=== PATIENT | female | born 1950 | race African-American/Black ===

== ENCOUNTER 2017-05-04 14:24 | Inpatient (IN) | payer MEDICARE ==
[2017-05-04] MEDS ORDERED: NITROGLYCERIN 0.4 MG/TAB 25 TAB/BOTTLE ONE (14:38)
[2017-05-04] MEDS ORDERED: NITROGLYCERIN 0.4 MG/TAB 25 TAB/BOTTLE SL PRN (14:39)
--- NOTE | 2017-05-04 14:44 | ER Document Report ---
ED Respiratory Problem - General Chief Complaint: Shortness Of Breath Stated Complaint: SHORTNESS OF BREATH Time Seen by Provider: 05/04/17 14:31 Mode of Arrival: Medic Cannot obtain history due to: Unstable vital signs, Other - Severe shortness of breath - HPI Notes: 66-year-old female history of hypertension. She presents with shortness of breath that has been severe from urgent care. Limited history as she is extremely short of breath, medics report her oxygen saturation was apparently 70 %. She is unable to lay back because of the shortness of breath. Further history could not be obtained as we are having respiratory evaluate the patient and she is unable to speak except in a few words only. - Related Data Allergies/Adverse Reactions: amoxicillin Allergy (Verified 05/04/17 15:09) Home Medications: Current Home Medications No Home Medications 05/04/17 [History] Past Medical History - Social History Smoking Status: Unknown if Ever Smoked Family History: Reviewed & Not Pertinent Physical Exam - Vital signs Vitals: BP 237/124 H 05/04/17 14:29 Interpretation: Hypertensive, Tachypneic - Notes Notes: Physical Exam: GENERAL: VS as per nursing doc. chronically ill-appearing female in severe respiratory distress HEAD: Atraumatic, normocephalic. EYES: Pupils equal round and reactive to light, extraocular movements intact, sclera anicteric, no conjunctival injection or discharge. ENT: Moist mucous membranes. NECK: Supple without lymphadenopathy. + JVD LUNGS: Decreased breath sounds bilaterally with scattered rales and rhonchi HEART: Tachycardic with some irregularity, systolic murmur noted. ABDOMEN: Very protuberant but nontender EXTREMITIES: 3+ pitting edema bilaterally NEUROLOGICAL: Cranial nerves grossly intact. Moves all extremities symmetrically. PSYCH: Very anxious. SKIN: Warm, dry and slightly flaking, no cyanosis. Cap refill < 2 sec. Course - Re-evaluation Re-evalutation: 05/04/17 16:39 Initial ABG was done pretty much as the patient was being put on BiPAP. She seems to be doing much better at this point she has more awake alert and does not seem happy when I discussed admission with her. We will repeat her ABG and reevaluate. 05/04/17 18:21 We were able to talk to the patient when we took off her mask for further evaluation. She is speaking clearly, wide awake. She is still slightly tachypneic but significantly improved. Her blood pressure has improved as well with the nitroglycerin. She did not require any nitroglycerin drip. She does state that she has not seen a doctor in a long time and has no current provider. She reports ignoring most of her symptoms and conditions. She denies any fever or purulent sputum. 05/04/17 19:55 Patient went from very alert and talking to obtunded very quickly. She was unable to be more than barely aroused with noxious stimuli. Discussed with the patient's family and we will intubate the patient. They report they have been trying to get her to see a doctor for a long period of time. They understand what it ventilator is as the mother had been on one in the past. - Vital Signs Vital signs: Temp Pulse Resp BP Pulse Ox 98.2 F 17 130/69 H 99 05/04/17 18:10 05/04/17 18:01 05/04/17 18:00 05/04/17 18:01 - Laboratory Result Diagrams: 05/04/17 14:35 05/04/17 14:35 Laboratory results interpreted by me: 05/04/17 05/04/17 05/04/17 14:35 14:35 14:35 WBC 10.6 H RBC 3.67 L Hgb 11.6 L Hct 34.7 L PT 16.5 H Carbonic Acid ABG pH ABG pCO2 ABG pO2 ABG HCO3 ABG Total CO2 ABG O2 Saturation VBG pCO2 VBG HCO3 Sodium 131.1 L Chloride 88 L Carbon Dioxide 33 H Glucose 200 H POC Glucose Direct Bilirubin 0.5 H AST 50 H NT-Pro-B Natriuret Pep Total Protein 9.0 H Urine Protein Urine Blood Ur Leukocyte Esterase Urine Ascorbic Acid 05/04/17 05/04/17 05/04/17 14:35 14:35 14:50 WBC RBC Hgb Hct PT Carbonic Acid 2.19 H ABG pH 7.28 L ABG pCO2 72.8 H* ABG pO2 146.4 H ABG HCO3 33.1 H ABG Total CO2 35.4 H ABG O2 Saturation 98.5 H VBG pCO2 68.0 H* VBG HCO3 33.3 H Sodium Chloride Carbon Dioxide Glucose POC Glucose Direct Bilirubin AST NT-Pro-B Natriuret Pep 4000 H Total Protein Urine Protein Urine Blood Ur Leukocyte Esterase Urine Ascorbic Acid 05/04/17 05/04/17 05/04/17 16:30 17:30 19:45 WBC RBC Hgb Hct PT Carbonic Acid 2.20 H ABG pH 7.29 L ABG pCO2 73.2 H* ABG pO2 129.3 H ABG HCO3 34.3 H ABG Total CO2 36.6 H ABG O2 Saturation 98.1 H VBG pCO2 VBG HCO3 Sodium Chloride Carbon Dioxide Glucose POC Glucose 190 H Direct Bilirubin AST NT-Pro-B Natriuret Pep Total Protein Urine Protein 100 H Urine Blood SMALL H Ur Leukocyte Esterase TRACE H Urine Ascorbic Acid 40 H - Diagnostic Test Radiology reviewed: Image reviewed - Severe cardiomegaly with scattered infiltrates versus pulmonary edema, Reports reviewed - EKG Interpretation by Fl Rate: Tachycardia - Appears to be sinus tachycardic but there is significant artifact noted. There are nonspecific diffuse ST abnormalities. Further EKG will be obtained now that the patient has improved. - Consults Dr. Pereira Time consulted: 18:15 - She took patients name room and diagnosis and will pass on to the [facility] hospitalist. Critical Care Note - Critical Care Note Total time excluding time spent on procedures (mins): 40 Discharge - Discharge Clinical Impression: Acute respiratory failure, CHF (congestive heart failure), Hyperglycemia, Hypertensive emergency Condition: Critical Disposition: ADMITTED INPATIENT Admitting Provider: Hospitalist Unit Admitted: ICU
[2017-05-04 15:02] LABS: ABSOLUTE BASOPHILS # (AUTO) 0.1 10^3/uL (0.0-0.2); ABSOLUTE EOSINOPHILS # (AUTO) 0.1 10^3/uL (0.0-0.6); ABSOLUTE LYMPHOCYTES (AUTO) 1.5 10^3/uL (0.5-4.7); ABSOLUTE MONOCYTES (AUTO) 0.7 10^3/uL (0.1-1.4); ABSOLUTE NEUT (AUTO) 8.2 10^3/uL (1.7-8.2); BASOPHILS % (AUTO) 0.5 % (0-2); EOSINOPHILS % (AUTO) 1.2 % (0-6); HEMATOCRIT 34.7 % (36.0-47.0); HEMOGLOBIN 11.6 g/dL (12.0-15.5); HGB HCT DIFFERENCE 0.1; LYMPHOCYTES % (AUTO) 14.4 % (13-45); MEAN CORPUSCULAR HEMOGLOBIN 31.7 pg (27.0-33.4); MEAN CORPUSCULAR HGB CONC 33.5 g/dL (32.0-36.0); MEAN CORPUSCULAR VOLUME 95 fl (80-97); MONOCYTES % (AUTO) 6.8 % (3-13); RED BLOOD COUNT 3.67 10^6/uL (3.72-5.28); RED CELL DISTRIBUTION WIDTH 13.7 % (11.5-14.0); SEGMENTED NEUTROPHILS % (AUTO) 77.1 % (42-78); WHITE BLOOD COUNT 10.6 10^3/uL (4.0-10.5)
[2017-05-04 15:05] LABS: PROTHROMBIN TIME 16.5 SEC (11.4-15.4)
[2017-05-04 15:09] LABS: VENOUS BLOOD BASE EXCESS 5.2 mmol/L; VENOUS BLOOD HCO3 33.3 mmol/L (20-32); VENOUS BLOOD PH 7.31 (7.30-7.42)
[2017-05-04 15:19] LABS: ALANINE AMINOTRANSFERASE 48 U/L (9-52); ALBUMIN 4.4 g/dL (3.5-5.0); ALKALINE PHOSPHATASE 64 U/L (38-126); ANION GAP 10 (5-19); ASPARTATE AMINO TRANSFERASE 50 U/L (14-36); BILIRUBIN,DIRECT 0.5 mg/dL (0.0-0.4); BILIRUBIN,TOTAL 1.1 mg/dL (0.2-1.3); BLOOD UREA NITROGEN 12 mg/dL (7-20); CALCIUM 9.9 mg/dL (8.4-10.2); CARBON DIOXIDE 33 mmol/L (22-30); CHLORIDE 88 mmol/L (98-107); CREATININE RESULT 0.82 mg/dL (0.52-1.25); GLUCOSE 200 mg/dL (75-110); POTASSIUM 4.5 mmol/L (3.6-5.0); SODIUM 131.1 mmol/L (137-145)
[2017-05-04] MEDS ORDERED: FUROSEMIDE INJ/PF 100 MG/10 ML SDV IV ONE (15:33)
[2017-05-04] MEDS ORDERED: LEVOFLOXACIN 750 MG/D5W RTU 750 MG/150 ML RTUPB IV ONE (15:44)
--- NOTE | 2017-05-04 15:54 | RADIOLOGY REPORT (SQ) ---
EXAM DESCRIPTION: CHEST SINGLE VIEW COMPLETED DATE/TIME: 05/04/2017 3:39 pm REASON FOR STUDY: bed 12 sepsis protocol COMPARISON: None. EXAM PARAMETERS: NUMBER OF VIEWS: One view. TECHNIQUE: Single frontal radiographic view of the chest acquired. RADIATION DOSE: NA LIMITATIONS: Low lung volumes. FINDINGS: LUNGS AND PLEURA: Infiltrate right upper and right lower lung zones. Increasing density l eft lower lung zone projected over the enlarged heart that may represent infiltrate. MEDIASTINUM AND HILAR STRUCTURES: No masses. Contour normal. HEART AND VASCULAR STRUCTURES: Marked cardiomegaly BONES: No acute findings. HARDWARE: None in the chest. OTHER: No other significant finding. IMPRESSION: Visualization of the lungs compromised by low lung volumes and poor inspiratory effort. Suspected infiltrates right upper and right lower lung zones as well as left lower lobe. Marked car diomegaly. TECHNICAL DOCUMENTATION: JOB ID: [id number] [employer]- All Rights Reserved
[2017-05-04 16:19] LABS: ARTERIAL BLOOD BASE EXCESS 4.3 mmol/L; ARTERIAL BLOOD O2 SATURATION 98.5 % (94-98)
[2017-05-04] MEDS: NITROGLYCERIN/D5W 50 MG/250 ML RTUINJ IV PRN ×2 (16:50→18:03)
[2017-05-04 16:52] LABS: AMORPHOUS SEDIMENT,URINE TRACE /HPF; APPEARANCE,URINE CLOUDY; BILIRUBIN,URINE NEGATIVE (NEGATIVE); GLUCOSE, URINE NEGATIVE (NEGATIVE); KETONES,URINE NEGATIVE (NEGATIVE); LEUKOCYTE ESTERASE,URINE TRACE (NEGATIVE); NITRITE,URINE NEGATIVE (NEGATIVE); PROTEIN,URINE 100 mg/dL (NEGATIVE); UROBILINOGEN,URINE NEGATIVE mg/dL (<2.0)
[2017-05-04 17:47] LABS: ARTERIAL BLOOD BASE EXCESS 5.8 mmol/L; ARTERIAL BLOOD O2 SATURATION 98.1 % (94-98)
[2017-05-04] MEDS ORDERED: ALBUTEROL SULFATE 0.042% NEB (1.25 MG/3 ML) AMPUL NEB ONE (17:47)
[2017-05-04] MEDS ORDERED: NITROGLYCERIN 2% OINTMENT 1 GM PACKET TP ONE (18:05)
[2017-05-04] MEDS ORDERED: IPRATROPIUM/ALBUTEROL 0.5-2.5 MG/3 ML AMPUL NEB ONE (18:06)
[2017-05-04] MEDS ORDERED: ETOMIDATE INJ/PF 20 MG/10 ML SDV IV ONE ×2 (19:49→19:57)
[2017-05-04] MEDS ORDERED: ALBUTEROL SULFATE 0.083% NEB 2.5 MG/3 ML AMPUL NEB PRN (19:52)
[2017-05-04] MEDS ORDERED: DEXTROSE 50%-WATER 25 GM/50 ML DISP.SYRIN IV PRN ×2 (19:53)
[2017-05-04] MEDS ORDERED: DEXTROSE 40% GEL 15 GM TUBE PO PRN ×2 (19:53)
[2017-05-04] MEDS ORDERED: FENTANYL CITRATE INJ/PF 100 MCG/2 ML AMPUL IV PRN (19:53)
[2017-05-04] MEDS ORDERED: GLUCAGON,HUMAN RECOMB 1 MG INJ IM PRN (19:53)
[2017-05-04] MEDS ORDERED: PROMETHAZINE HCL 25 MG TABLET NG PRN (19:54)
[2017-05-04] MEDS ORDERED: ACETAMINOPHEN 325 MG TABLET NG PRN (19:54)
[2017-05-04] MEDS ORDERED: SUCCINYLCHOLINE CHLORIDE INJ 200 MG/10 ML VIAL IV ONE (19:57)
[2017-05-04] MEDS ORDERED: PHARMACY COMMUNICATION ORDER MC NR (20:00)
[2017-05-04] MEDS ORDERED: VECURONIUM BROMIDE INJ 10 MG VIAL IV ONE (20:24)
[2017-05-04] MEDS: PROPOFOL 100 ML IV PRN (20:29)
[2017-05-04] MEDS: MIDAZOLAM HCL 100 ML IV PRN (20:29)
[2017-05-04 20:33] LABS: ARTERIAL BLOOD BASE EXCESS 7.3 mmol/L; ARTERIAL BLOOD O2 SATURATION 99.4 % (94-98)
--- NOTE | 2017-05-04 20:40 | RADIOLOGY REPORT (SQ) ---
EXAM DESCRIPTION: CHEST SINGLE VIEW COMPLETED DATE/TIME: 05/04/2017 8:30 pm REASON FOR STUDY: tube placement COMPARISON: 05/04/2017. EXAM PARAMETERS: NUMBER OF VIEWS: One view. TECHNIQUE: Single frontal radiographic view of the chest acquired. RADIATION DOSE: NA LIMITATIONS: None. FINDINGS: LUNGS AND PLEURA: Diffuse infiltrate in the left lung. Probable left pleural effusion. MEDIASTINUM AND HILAR STRUCTURES: No masses. Contour normal. HEART AND VASCULAR STRUCTURES: Marked cardiomegaly. BONES: No acute findings. HARDWARE: Endotracheal tube with the tip located 3.5 cm proximal to the darryn. Nasogastric tube wit h the tip in the stomach. OTHER: No other significant finding. IMPRESSION: 1. LIFE LINES DESCRIBED. POSITION APPEARS SATISFACTORY. 2. MARKED CARDIOMEGALY. EXTENSIVE INFILTRATE IN THE LEFT LUNG WITH LEFT PLEURAL EFFUSION, POSSIBLY S LIGHTLY WORSE. TECHNICAL DOCUMENTATION: JOB ID: [id number] [employer]- All Rights Reserved
[2017-05-04] MEDS ORDERED: NORMAL SALINE 1000 ML 500 ML IV ONE (20:54)
[2017-05-04 21:07] LABS: ALANINE AMINOTRANSFERASE 41 U/L (9-52); ALBUMIN 4.3 g/dL (3.5-5.0); ALKALINE PHOSPHATASE 63 U/L (38-126); ASPARTATE AMINO TRANSFERASE 50 U/L (14-36); BILIRUBIN,DIRECT 0.5 mg/dL (0.0-0.4)
[2017-05-04 21:20] LABS: CREATINE KINASE MB 6.55 ng/mL (<4.55); TROPONIN I 0.08 ng/mL
[2017-05-04 21:37] LABS: THYROID STIMULATING HORMONE 68.5 uIU/mL (0.47-4.68)
[2017-05-04] MEDS ORDERED: LISINOPRIL 5 MG TABLET NG SCH (22:00)
[2017-05-04] MEDS ORDERED: SUCCINYLCHOLINE CHLORIDE INJ 200 MG/10 ML VIAL ONE (22:03)
[2017-05-04] MEDS ORDERED: INFLUENZA ADLT QUAD (36MOS+) 2017-18 VAC 0.5 ML SYR IM PRN (22:05)
[2017-05-04] MEDS: HEPARIN SOD (PORCINE) 5,000 UNIT/ML 1 ML SYRINGE SUBCUT SCH (22:25)
[2017-05-04] MEDS: FUROSEMIDE INJ/PF 40 MG/4 ML SDV IV SCH (22:26)
[2017-05-04] MEDS ORDERED: LIOTHYRONINE SODIUM 25 MCG TABLET NG ONE (22:34)
[2017-05-04] MEDS ORDERED: LEVOTHYROXINE SODIUM INJ/PF 0.1 MG SDV IV ONE (22:34)
[2017-05-04] MEDS ORDERED: COSYNTROPIN INJ 0.25 MG VIAL IV SCH (22:40)
--- NOTE | 2017-05-04 22:58 | EKG REPORT ---
SEVERITY:- ABNORMAL ECG - SINUS RHYTHM PROBABLE LEFT ATRIAL ABNORMALITY LEFT VENTRICULAR HYPERTROPHY BORDERLINE PROLONGED QT INTERVAL : Confirmed by: Cyndee Barclay 04-May-2017 22:57:14
[2017-05-04] MEDS ORDERED: DEXAMETHASONE SOD PHOSPHATE INJ 4 MG/1 ML VIAL IV ONE (23:00)
[2017-05-04] MEDS ORDERED: COSYNTROPIN INJ 0.25 MG VIAL ONE (23:20)
[2017-05-04] MEDS: INSULIN LISPRO 100 UNIT/ML 3 ML VIAL SUBCUT PRN (23:48)
[2017-05-05 00:27] LABS: ARTERIAL BLOOD BASE EXCESS 6.6 mmol/L
[2017-05-05] MEDS ORDERED: HYDROCORTISONE SOD SUCCINATE INJ/PF 100 MG/2 ML SDV IV ONE (00:30)
[2017-05-05] MEDS: NITROGLYCERIN 2% OINTMENT 1 GM PACKET TP SCH ×5 (00:41→23:45)
--- NOTE | 2017-05-05 00:55 | PDOC H&P ---
History of Present Illness Admission Date/PCP: 05/04/17 20:00 NO PCP History of Present Illness: When I went to examine this patient, she was unresponsive on Bipap. This necessitated emergent intervention including Accu-Chek, blood pressure, sternal rub, and emergent intubation by ER physician. Her sisters were present at bedside and any history and here is obtained from them are from the ER note. Patient apparently presented to the emergency department with a history of shortness of breath that was so severe she was immediately sent from the urgent care. Her EMS reported that her oxygen saturation was only 70%. Patient was having 3 word dyspnea. Patient was found to be hypertensive with a systolic of 230/130 and was given 2 g of topical nitroglycerin paste by the emergency department and 80mg IV Lasix and placed on BiPAP. Patient sisters report that she has been short of breath and having dyspnea on exertion as well as edema since summer or longer. They have tried encouraging her to go to the doctor, but patient had a thyroid problem as a child and has a subsequent fear of doctors. One sister reports that she took her blood sugar over the summer and it was found to be 200s. She reports that her sister eats a lot and does not go out often. She reports that she works at a [employer]. Past Medical History Cardiac Medical History: Reports: Hypertension Endocrine Medical History: Reports: Other - Thyroid problem Past Surgical History Past Surgical History: Reports: None Social History Lives with: Alone Smoking Status: Unknown if Ever Smoked Frequency of Alcohol Use: None Hx Recreational Drug Use: No - Advance Directive Resuscitation Status: Full Code Surrogate healthcare decision maker:: Jacquie Hernandes, daughter Family History Family History: DM Parental Family History Reviewed: Yes Children Family History Reviewed: Yes Sibling(s) Family History Reviewed.: Yes Medication/Allergy Home Medications: No Home Medications 05/04/17 Allergies/Adverse Reactions: amoxicillin Allergy (Verified 05/04/17 15:09) Review of Systems ROS unobtainable: Due to endotracheal tube, Due to mental status Physical Exam Vital Signs: Temp Pulse Resp BP Pulse Ox 98.2 F 17 130/69 H 99 05/04/17 18:10 05/04/17 18:01 05/04/17 18:00 05/04/17 18:01 General appearance: PRESENT: obese, well-developed Head exam: PRESENT: atraumatic, normocephalic Eye exam: PRESENT: conjunctiva pink, conjunctiva pale, periorbital swelling, PERRLA. ABSENT: scleral icterus Ear exam: PRESENT: normal external ear exam, TM's normal bilaterally Mouth exam: PRESENT: moist, neck supple, tongue midline Neck exam: ABSENT: JVD, lymphadenopathy, thyromegaly, tracheal deviation Respiratory exam: PRESENT: rales, unlabored, other - Hypoventilatory. ABSENT: rhonchi, wheezes Cardiovascular exam: PRESENT: RRR, +S1, +S2, systolic murmur. ABSENT: diastolic murmur, rubs Pulses: PRESENT: normal dorsalis pedis pul Vascular exam: PRESENT: normal capillary refill GI/Abdominal exam: PRESENT: normal bowel sounds, soft. ABSENT: distended, firm , guarding, mass, Stokes's sign, organolmegaly, rebound, rigid, tenderness Rectal exam: PRESENT: deferred Extremities exam: PRESENT: +2 edema. ABSENT: calf tenderness, clubbing Neurological exam: PRESENT: other - Obtunded and unable to arouse Skin exam: PRESENT: dry, intact, pallor. ABSENT: cyanosis, rash, warm - cool Results Laboratory Results: 05/04/17 05/04/17 05/04/17 14:35 14:35 14:35 WBC 10.6 H Hgb 11.6 L Hct 34.7 L Plt Count 240 INR 1.25 ABG pH ABG pCO2 ABG pO2 ABG HCO3 ABG Total CO2 ABG O2 Saturation FiO2 Sodium 131.1 L Potassium 4.5 Chloride 88 L Carbon Dioxide 33 H Anion Gap 10 BUN 12 Creatinine 0.82 Glucose 200 H POC Glucose Hemoglobin A1c % Lactic Acid Calcium 9.9 Total Bilirubin 1.1 Direct Bilirubin 0.5 H AST 50 H ALT 48 Alkaline Phosphatase 64 Creatine Kinase CK-MB (CK-2) Troponin I NT-Pro-B Natriuret Pep Total Protein 9.0 H Albumin 4.4 TSH Free T4 Free T3 pg/mL 05/04/17 05/04/17 05/04/17 14:35 14:35 14:35 WBC Hgb Hct Plt Count INR ABG pH ABG pCO2 ABG pO2 ABG HCO3 ABG Total CO2 ABG O2 Saturation FiO2 Sodium Potassium Chloride Carbon Dioxide Anion Gap BUN Creatinine Glucose POC Glucose Hemoglobin A1c % 6.9 H Lactic Acid Calcium Total Bilirubin Direct Bilirubin AST ALT Alkaline Phosphatase Creatine Kinase 461 H CK-MB (CK-2) Troponin I NT-Pro-B Natriuret Pep 4000 H Total Protein Albumin TSH Free T4 Free T3 pg/mL 05/04/17 05/04/17 05/04/17 14:35 14:35 14:35 WBC Hgb Hct Plt Count INR ABG pH ABG pCO2 ABG pO2 ABG HCO3 ABG Total CO2 ABG O2 Saturation FiO2 Sodium Potassium Chloride Carbon Dioxide Anion Gap BUN Creatinine Glucose POC Glucose Hemoglobin A1c % Lactic Acid Calcium Total Bilirubin Direct Bilirubin AST ALT Alkaline Phosphatase Creatine Kinase CK-MB (CK-2) 6.55 H Troponin I 0.080 NT-Pro-B Natriuret Pep Total Protein 9.0 H Albumin 4.3 TSH 68.50 H Free T4 0.07 L Free T3 pg/mL 05/04/17 05/04/17 05/04/17 14:35 14:50 16:15 WBC Hgb Hct Plt Count INR ABG pH 7.28 L ABG pCO2 72.8 H* ABG pO2 146.4 H ABG HCO3 33.1 H ABG Total CO2 35.4 H ABG O2 Saturation 98.5 H FiO2 100% Sodium Potassium Chloride Carbon Dioxide Anion Gap BUN Creatinine Glucose POC Glucose Hemoglobin A1c % Lactic Acid 1.5 Calcium Total Bilirubin Direct Bilirubin AST ALT Alkaline Phosphatase Creatine Kinase CK-MB (CK-2) Troponin I NT-Pro-B Natriuret Pep Total Protein Albumin TSH Free T4 Free T3 pg/mL 1.01 L 05/04/17 05/04/17 17:30 19:45 WBC Hgb Hct Plt Count INR ABG pH 7.29 L ABG pCO2 73.2 H* ABG pO2 129.3 H ABG HCO3 34.3 H ABG Total CO2 36.6 H ABG O2 Saturation 98.1 H FiO2 80% Sodium Potassium Chloride Carbon Dioxide Anion Gap BUN Creatinine Glucose POC Glucose 190 H Hemoglobin A1c % Lactic Acid Calcium Total Bilirubin Direct Bilirubin AST ALT Alkaline Phosphatase Creatine Kinase CK-MB (CK-2) Troponin I NT-Pro-B Natriuret Pep Total Protein Albumin TSH Free T4 Free T3 pg/mL Impressions: Chest X-Ray 05/04/17 14:26 IMPRESSION: Visualization of the lungs compromised by low lung volumes and poor inspiratory effort. Suspected infiltrates right upper and right lower lung zones as well as left lower lobe. Marked cardiomegaly. Status: Imported from PACS Assessment & Plan - Diagnosis (1) Myxedema coma Is this a current diagnosis for this admission?: Yes Plan: Will give patient Synthroid 0.1mg IV x1 and Cytomel 25mcg NG x1. Will initiate Synthroid 100mcg IV daily. Obtain Free T3 and Free T4 minimum of q48 hours while undergoing repletion. Monitor patient for arrhythmia or infarction while giving IV Synthroid. 05/04/17 05/04/17 14:35 14:35 TSH 68.50 H Free T4 0.07 L Free T3 pg/mL 1.01 L Have sent for anti-TPO antibodies and thyrotropin receptor antibodies. Concern exists for co-morbid adrenal insufficiency. Have initiated patient on Hydrocortisone and send ACTH and random cortisol level. Will taper as patient improves. Have discussed this case with Dr. Sherman, endocrinology fellow, at [facility] who is in agreement with this plan. (2) Acute respiratory failure Qualifiers: Respiratory failure complication: hypoxia and hypercapnia Qualified Code(s) : J96.01 - Acute respiratory failure with hypoxia; J96.02 - Acute respiratory failure with hypercapnia; J96.02 - Acute respiratory failure with hypercapnia; J96.02 - Acute respiratory failure with hypercapnia Is this a current diagnosis for this admission?: Yes Plan: Patient appears to have both an element of hypercapnia as well as hypoxia. Patient's hypercapnic episode is likely secondary to her profound myxedema resulting in hypoventilation. Patient's hypoxia was likely secondary to her acute pulmonary edema and also possibly due to underlying pneumonia. Patient has required intubation and we will consult pulmonary medicine to manage her ventilator. (3) CHF (congestive heart failure) Qualifiers: Congestive heart failure type: unspecified congestive heart failure type Congestive heart failure chronicity: acute Qualified Code(s): I50.9 - Heart failure, unspecified Is this a current diagnosis for this admission?: Yes Plan: Will obtain echo. I have requested a stat echo, but was declined by the on- call panel lay up worker. Place patient on cozaar, nitroglycerin, and Lasix. No beta-alina at this time secondary to the acute phase of congestive heart failure. Monitor strict I's and O's (4) Diabetes mellitus Qualifiers: Diabetes mellitus type: type 2 Diabetes mellitus complication status: with unspecified complications Diabetes mellitus terminal make up operator insulin use: without mcfp use Qualified Code(s): E11.8 - Type 2 diabetes mellitus with unspecified complications Is this a current diagnosis for this admission?: Yes Plan: Patient presented with an elevated fasting blood glucose and check of an A1c reveals hemoglobin A1c of 6.9. Will place patient on Accu-Cheks every 6 hours with sliding scale insulin. 05/04/17 05/04/17 14:35 14:35 Glucose 200 H Hemoglobin A1c % 6.9 H (5) Hyperglycemia Is this a current diagnosis for this admission?: Yes Plan: Patient is a newly diagnosed diabetic (6) Hypertensive emergency Is this a current diagnosis for this admission?: Yes Plan: This has improved with the administration of topical nitroglycerin (7) Rhabdomyolysis Qualifiers: Rhabdomyolysis type: non-traumatic Qualified Code(s): M62.82 - Rhabdomyolysis Is this a current diagnosis for this admission?: Yes Plan: Mild rhabdomyolysis likely secondary to her underlying hypothyroidism. (8) Hyponatremia Is this a current diagnosis for this admission?: Yes Plan: Likely multifactorial secondary to her underlying myxedema and edema. Will monitor closely with BMP (9) Hyperproteinemia Is this a current diagnosis for this admission?: Yes Plan: Have sent SPEP and UPEP with concerns for underlying multiple myeloma given patient's age. (10) UTI (urinary tract infection) Qualifiers: Urinary tract infection type: acute cystitis Hematuria presence: with hematuria Qualified Code(s): N30.01 - Acute cystitis with hematuria Is this a current diagnosis for this admission?: Yes Plan: Have initiated patient on Rocephin and sent culture (11) Obesity Qualifiers: Obesity type: unspecified obesity type Obesity classification: adult class 1 (BMI 30 - 34.9) Serious obesity comorbidity presence: with serious comorbidity Body mass index: BMI 32.0-32.9 Qualified Code(s): E66.9 - Obesity, unspecified; Z68.32 - Body mass index (BMI) 32.0-32.9, adult; Z68.32 - Body mass index (BMI) 32.0-32.9, adult Is this a current diagnosis for this admission?: Yes - Time Time Spent: Greater than 70 Minutes Critical Time spent with patient: 35 or more minutes Medications reviewed and adjusted accordingly: Yes - Inpatient Certification Based on my medical assessment, after consideration of the patient's comorbidities, presenting symptoms, or acuity I expect that the services needed warrant INPATIENT care.: Yes I certify that my determination is in accordance with my understanding of Medicare's requirements for reasonable and necessary INPATIENT services [42 CFR 412.3e].: Yes Medical Necessity: Need Close Monitoring Due to Risk of Patient Decompensation, Need For Continuous Telemetry Monitoring, Need for IV Antibiotics, Risk of Complication if Not Cared For in Hospital, Risk of Diagnosis Which Will Require Inpatient Eval/Care/Monitoring Post Hospital Care: D/C Felt Puller Documentation - Plan Summary Plan Summary: Total time spent with patient including patient family discussion, physical examination, discussion with consultants, and formulation of plan was it is 120 minutes of critical care time.
[2017-05-05] MEDS: PROPOFOL 100 ML IV PRN ×3 (01:20→19:23)
[2017-05-05 01:34] LABS: CREATINE KINASE MB 6.3 ng/mL (<4.55); TROPONIN I 0.086 ng/mL
[2017-05-05] MEDS: HYDROCORTISONE SOD SUCCINATE INJ/PF 100 MG/2 ML SDV IV SCH ×3 (05:07→21:56)
[2017-05-05] MEDS: HEPARIN SOD (PORCINE) 5,000 UNIT/ML 1 ML SYRINGE SUBCUT SCH ×3 (05:07→21:57)
[2017-05-05] MEDS: MIDAZOLAM HCL 100 ML IV PRN (05:11)
[2017-05-05] MEDS: INSULIN LISPRO 100 UNIT/ML 3 ML VIAL SUBCUT PRN ×2 (05:21→23:44)
[2017-05-05 05:42] LABS: ARTERIAL BLOOD BASE EXCESS 8.7 mmol/L; ARTERIAL BLOOD O2 SATURATION 97.6 % (94-98)
[2017-05-05] MEDS ORDERED: LEVOTHYROXINE SODIUM 0.1 MG TABLET NG SCH (06:00)
[2017-05-05] MEDS ORDERED: DEXAMETHASONE SOD PHOSPHATE INJ 4 MG/1 ML VIAL IV SCH (06:00)
[2017-05-05] MEDS ORDERED: LIOTHYRONINE SODIUM 25 MCG TABLET NG SCH (06:00)
--- NOTE | 2017-05-05 06:46 | RADIOLOGY REPORT (SQ) ---
EXAM DESCRIPTION: CHEST SINGLE VIEW CLINICAL HISTORY: chf COMPARISON: 05/04/2017 FINDINGS: Single frontal view of the chest. Cardiomegaly. Atelectatic calcification aortic arch. Left lower lobe consolidation with air bronchograms. No pneumothorax. Left pleural effusion is a possibility. Endotracheal tube with tip 5 cm above the darryn. NG tube with tip below the diaphragm. Leads overlie the chest. No acute osseous abnormalities. Upper abdominal soft tissues are unremarkable. IMPRESSION: 1. No significant interval change with persistent left lower lobe pneumonic consolidation.
[2017-05-05 08:00] LABS: ANION GAP 11 (5-19); BLOOD UREA NITROGEN 17 mg/dL (7-20); CALCIUM 8.9 mg/dL (8.4-10.2); CARBON DIOXIDE 28 mmol/L (22-30); CHLORIDE 93 mmol/L (98-107); CHOLESTEROL 237.17 mg/dL (0-200); CREATINE KINASE 387 U/L (30-135); CREATININE RESULT 1.13 mg/dL (0.52-1.25); Direct HDL 48 mg/dL (>40); GLUCOSE 184 mg/dL (75-110); MAGNESIUM 1.8 mg/dL (1.6-2.3); POTASSIUM 4.1 mmol/L (3.6-5.0); SODIUM 132.4 mmol/L (137-145); TRIGLYCERIDES 94 mg/dL (<150)
[2017-05-05 08:03] LABS: ABSOLUTE LYMPHOCYTES (AUTO) 0.6 10^3/uL (0.5-4.7); ABSOLUTE MONOCYTES (AUTO) 0.5 10^3/uL (0.1-1.4); BASOPHILS % (AUTO) 0.2 % (0-2); HEMATOCRIT 28.9 % (36.0-47.0); HEMOGLOBIN 9.8 g/dL (12.0-15.5); HGB HCT DIFFERENCE 0.5; MEAN CORPUSCULAR HEMOGLOBIN 31.6 pg (27.0-33.4); MEAN CORPUSCULAR VOLUME 93 fl (80-97); RED BLOOD COUNT 3.11 10^6/uL (3.72-5.28); RED CELL DISTRIBUTION WIDTH 13.3 % (11.5-14.0); SEGMENTED NEUTROPHILS % (AUTO) 86.8 % (42-78); WHITE BLOOD COUNT 9.2 10^3/uL (4.0-10.5)
[2017-05-05 08:11] LABS: DIRECT LDL 163 mg/dL (<100)
[2017-05-05 08:13] LABS: CREATINE KINASE MB 5.5 ng/mL (<4.55); TROPONIN I 0.092 ng/mL
[2017-05-05 08:16] LABS: FREE T3 1.37 pg/mL (2.77-5.27)
[2017-05-05] MEDS ORDERED: RACEPINEPHRINE HCL 2.25% NEB 0.5 ML AMPUL NEB ONE (09:57)
[2017-05-05] MEDS ORDERED: CEFTRIAXONE 1 GM/D5W RTU 1 GM/50 ML RTUPB IV SCH (10:00)
--- NOTE | 2017-05-05 10:29 | OPERATIVE REPORT E ---
Operative Report NAME: ZOFIA RIVERA : 1950 AGE: 66Y DATE OF SURGERY: 05/05/2017 ROOM: [facility] PREOPERATIVE DIAGNOSIS: Poor veins for IV access. POSTOPERATIVE DIAGNOSIS: Poor veins for IV access. PROCEDURE: Placement of right subclavian catheter, triple lumen. SURGEON: BRAYDON RATLIFF M.D. ANESTHESIA: Local MAC. INDICATIONS: This is a 66-year-old female who was intubated and noted to have poor veins for IV access and also needed a central line. DESCRIPTION OF PROCEDURE: Patient was placed in Trendelenburg position. The right chest and neck were then prepped and draped in the usual sterile fashion. Local anesthesia was infiltrated at the right infraclavicular area. The patient did have Versed primarily for intubation. The right subclavian vein was then punctured and guidewire passed through the needle towards the superior vena cava. The needle was removed and puncture site dilated. A triple-lumen catheter was inserted up to about 16 cm and anchored to the skin with 3-0 silk. All 3 ports showed easy egress of blood and easy ingress of saline. Biopatch was placed at the insertion site and a transparent dressing placed over. The patient tolerated the procedure well. DICTATING PHYSICIAN: BRAYDON RATLIFF M.D. [id number] PHY#: [id number] ID: [id number] JOB#: [id number] ACCT: [id number] cc:BRAYDON RATLIFF M.D. >
--- NOTE | 2017-05-05 10:35 | RADIOLOGY REPORT (SQ) ---
EXAM DESCRIPTION: U/S THYROID/SFT TISS HD NECK COMPLETED DATE/TIME: 05/05/2017 9:40 am REASON FOR STUDY: myxedema COMPARISON: None. TECHNIQUE: Dynamic and static lazo-scale images acquired of the thyroid gland. Selected additional c olor/power Doppler images recorded. All images stored to PACS. LIMITATIONS: None. FINDINGS: Sonographic imaging around the thyroid cartilage shows no identifiable thyroid tissue. IMPRESSION: No identifiable thyroid tissue was seen. No masses were seen. The study is limited by positioning the fact the patient was on a ventilator. TECHNICAL DOCUMENTATION: JOB ID: [id number] [employer]- All Rights Reserved
--- NOTE | 2017-05-05 11:18 | PROGRESS NOTE E ---
Progress Note NAME: ZOFIA RIVERA : 1950 AGE: 66Y DATE: 05/05/2017 ROOM: 610 CRITICAL CARE NOTE SUBJECTIVE: The patient remains intubated, sedated, unable to provide any history. I did update the family on the patient's course. The patient has since had a central line placed. The patient has had decent urine output according to nursing. The patient has had approximately a liter out, according to documentation overnight. The patient did have an echo. Findings were concerning for possible effusion. I have discussed the case with cardiology and the patient will have a CTA. The patient's blood pressures have been an acceptable range at this time and the patient has been afebrile. Unfortunately, the patient is unable to voice any concerns at this time. REVIEW OF SYSTEMS: Cannot be appreciated given the patient's mental status. MEDICATIONS: Medications have been reviewed. OBJECTIVE: GENERAL: The patient is a 66-year-old female who is currently intubated, sedated; unable to provide any history. She does not appear to be distressed. VITAL SIGNS: As follows: Temperature is 97.4, pulse 60, respirations 12, blood pressure is 101/62. Oxygen saturation is 100% on 40% FIO2. SKIN: Warm and dry. No rash. Not diaphoretic. HEENT: Pupils are reactive. Patient does have bilateral periorbital edema. Interestingly, no evidence of JVP. CARDIOVASCULAR: Heart is regular, mildly diminished. Could not appreciate a rub. CHEST: Symmetrical, unlabored, clear. ABDOMEN: Is soft; does appear it possibly is distended from fluid. EXTREMITIES: No clubbing, cyanosis, with evidence of chronic edema. DIAGNOSTICS: Lab values are as follows: Hematology obtained on 05/05/2017: WBC is 9.2. Hemoglobin is 9.8, hematocrit 28.9, platelet count is 174,000. Chemistry obtained on 05/05/2017: Sodium is 132, potassium is 4.1, chloride is 93, carbon dioxide 28, BUN 17, creatinine 1.13, glucose 148, calcium is 8.9, magnesium was 1.8, CK is 389. Blood cultures obtained on 05/04/2017 are pending. Urine culture obtained on 05/04/2017 reveals a gram-negative jack. Sputum obtained on 05/04/2017 is pending. IMPRESSION AND PLAN: 1. ACUTE HYPERCAPNIC RESPIRATORY FAILURE; UNCERTAIN IF THERE IS AN ELEMENT OF CHRONICITY HERE. REGARDLESS, THE PATIENT'S PCO2 HAS NOW BEEN OVERCOMPENSATED. Will adjust accordingly. Have discussed the case with pulmonology as well. Will follow. 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 The patient has been supplemented hormone and will continue to do this as well as steroid, and follow. 3. HEART FAILURE; UNABLE TO CLASSIFY FROM HERE GIVEN THE LIMITED INFORMATION AVAILABLE. The patient has not sought out medical care so I have no previous records as a point of reference. The patient has had an echocardiogram which results are pending and the patient has diuresed well at this time. I have discussed the case with cardiology and we will proceed with CTA to help further differentiate pleural from pericardial effusion. DISPOSITION: The patient is a FULL CODE. Pending patient's symptomatology and diagnostic findings, will reevaluate the patient has needed. Time spent on this critical care visit including assessment, plan, physical examination, and patient education, review of records, special collaboration, and family meetin minutes. DICTATING PHYSICIAN: DAVID HESS NP [id number] PHY#: [id number] ID: [id number] JOB#: [id number] ACCT: [id number] cc: > [facility]ITAL[facility]van
--- NOTE | 2017-05-05 11:18 | EKG REPORT ---
SEVERITY:- ABNORMAL ECG - SINUS RHYTHM PROBABLE LEFT ATRIAL ABNORMALITY LEFT VENTRICULAR HYPERTROPHY BORDERLINE PROLONGED QT INTERVAL : Confirmed on behalf of: Cyndee Barclay 05-May-2017 11:18:02
[2017-05-05] MEDS: LOSARTAN POTASSIUM 25 MG TABLET NG SCH ×2 (12:22→21:56)
[2017-05-05] MEDS: FAMOTIDINE 20 MG TABLET NG SCH ×2 (12:22→21:57)
[2017-05-05] MEDS: LEVOTHYROXINE SODIUM INJ/PF 0.1 MG SDV IV SCH (12:22)
[2017-05-05] MEDS: FUROSEMIDE INJ/PF 40 MG/4 ML SDV IV SCH ×2 (12:23→21:56)
--- NOTE | 2017-05-05 12:33 | RADIOLOGY REPORT (SQ) ---
EXAM DESCRIPTION: CHEST SINGLE VIEW COMPLETED DATE/TIME: 05/05/2017 11:51 am REASON FOR STUDY: central line placement COMPARISON: 05/05/2017 EXAM PARAMETERS: NUMBER OF VIEWS: One view. TECHNIQUE: Single frontal radiographic view of the chest acquired. RADIATION DOSE: NA LIMITATIONS: None. FINDINGS: LUNGS AND PLEURA: No change. There is still marked opacification in the retrocardiac area . There is still a suggestion of a left pleural effusion as well. Endotracheal tube remains in posi tion. NG tube remains in position. There is now a right subclavian line with the tip in the superio r cava. There is no pneumothorax. MEDIASTINUM AND HILAR STRUCTURES: No masses. Contour normal. HEART AND VASCULAR STRUCTURES: Cardiomegaly. No yelena failure. BONES: No acute findings. HARDWARE: Tubes and catheters as described above. OTHER: No other significant finding. IMPRESSION: Cardiomegaly. Likely left lower lobe consolidation. Possible left pleural effusion. T ube and catheter placement as described. TECHNICAL DOCUMENTATION: JOB ID: [id number] [employer]- All Rights Reserved
--- NOTE | 2017-05-05 13:52 | EKG REPORT ---
SEVERITY:- ABNORMAL ECG - SINUS TACHYCARDIA KATHIA, CONSIDER BIATRIAL ABNORMALITIES ABNORMAL T, CONSIDER ISCHEMIA, LATERAL LEADS BORDERLINE ST ELEVATION, INFERIOR LEADS : Confirmed by: Cyndee Barclay 05-May-2017 13:51:57
[2017-05-05 14:26] LABS: ARTERIAL BLOOD BASE EXCESS 7.6 mmol/L; ARTERIAL BLOOD O2 SATURATION 98.1 % (94-98)
--- NOTE | 2017-05-05 15:07 | Physician Advisory Note ---
Physician Advisor ProgressNote .: [facility] I have reviewed the medical record for this patient. Physician Advisor Statement: Please consider documenting, if you agree: 1. "hypertensive emergency, causing acute ___ type CHF [syst or diast...] / acute encephalopathy / ...." 2. "Acute hyponatremia, likely due to [acute CHF?]" Thanks! CK
--- NOTE | 2017-05-05 19:35 | RADIOLOGY REPORT (SQ) ---
EXAM DESCRIPTION: CTA CHEST COMPLETED DATE/TIME: 05/05/2017 7:20 pm REASON FOR STUDY: Pericardial vs pleural effusion COMPARISON: None. TECHNIQUE: CT scan of the chest performed using helical scanning technique with dynamic intravenous contrast injection. Images reviewed with lung, soft tissue and bone windows. Reconstructed coronal and sagittal MPR images reviewed. Additional 3 dimensional post-processing performed to develop Maximal Intensity Projection images (NC P). All images stored on PACS. All CT scanners at this facility use dose modulation, iterative reconstruction, and/or weight based d osing when appropriate to reduce radiation dose to as low as reasonably achievable (ALARA). [facility]: Dose Right [facility]: CareDose [facility]: Dose Right [facility]: Teradose 4D [facility]: [employer] CONTRAST TYPE AND DOSE: contrast/concentration: Isovue 370.00 mg/ml; Total Contrast Delivered: 75.0 ml; Total Saline Delivered: 82.0 ml Contrast bolus optimized for the pulmonary arteries. Not diagnostic for the aorta. RENAL FUNCTION: BUN 17 creatinine 1.13. RADIATION DOSE: CT Rad equipment meets quality standard of care and radiation dose reduction techniq ues were employed. CTDIvol: 32.0 - 33.1 mGy. DLP: 1121 mGy-cm. . LIMITATIONS: None. FINDINGS: LUNGS AND PLEURA: Small pleural effusions. Scattered patchy parenchymal opacities in the right upper lobe and both lower lobes. Bronchiectasis in the lower lobes. AORTA AND GREAT VESSELS: No aneurysm. Contrast bolus not optimized for the aorta. HEART: Large pericardial effusion. No significant coronary artery calcifications. PULMONARY ARTERIES: No emboli visualized in the main pulmonary arteries or the segmental branches. HILAR AND MEDIASTINAL STRUCTURES: No identified masses or abnormal nodes. HARDWARE: Endotracheal tube and nasogastric tube. UPPER ABDOMEN: No significant findings. Limited exam. THYROID AND OTHER SOFT TISSUES: No masses. No adenopathy. BONES: No acute or significant finding. 3D MIPS: Confirm above findings. OTHER: No other significant finding. IMPRESSION: 1. NORMAL CTA OF THE CHEST. NO PULMONARY EMBOLI. 2. LARGE PERICARDIAL EFFUSION. 3. SMALL PLEURAL EFFUSIONS. SCATTERED AREAS OF ATELECTASIS AND/OR INFILTRATE. BRONCHIECTASIS IN THE LOWER LOBES. COMMENT: Quality ID # [id number]: Final reports with documentation of one or more dose reduction techniques (e.g., Automated exposure control, adjustment of the mA and/or kV according to patient size, use of iterative reconstruction technique) TECHNICAL DOCUMENTATION: JOB ID: [id number] [employer]- All Rights Reserved
[2017-05-06] MEDS: PROPOFOL 100 ML IV PRN ×2 (03:10→09:48)
[2017-05-06] MEDS: HYDROCORTISONE SOD SUCCINATE INJ/PF 100 MG/2 ML SDV IV SCH (05:13)
[2017-05-06] MEDS: HEPARIN SOD (PORCINE) 5,000 UNIT/ML 1 ML SYRINGE SUBCUT SCH (05:14)
[2017-05-06] MEDS: INSULIN LISPRO 100 UNIT/ML 3 ML VIAL SUBCUT PRN (05:14)
[2017-05-06] MEDS: NITROGLYCERIN 2% OINTMENT 1 GM PACKET TP SCH (05:15)
[2017-05-06 05:17] LABS: ABSOLUTE LYMPHOCYTES (AUTO) 0.7 10^3/uL (0.5-4.7); ABSOLUTE MONOCYTES (AUTO) 0.7 10^3/uL (0.1-1.4); ABSOLUTE NEUT (AUTO) 9.7 10^3/uL (1.7-8.2); BASOPHILS % (AUTO) 0.1 % (0-2); HEMATOCRIT 29.7 % (36.0-47.0); HGB HCT DIFFERENCE 0.3; LYMPHOCYTES % (AUTO) 6.1 % (13-45); MEAN CORPUSCULAR HEMOGLOBIN 31.1 pg (27.0-33.4); MEAN CORPUSCULAR HGB CONC 33.5 g/dL (32.0-36.0); MEAN CORPUSCULAR VOLUME 93 fl (80-97); MONOCYTES % (AUTO) 5.9 % (3-13); RED CELL DISTRIBUTION WIDTH 13.6 % (11.5-14.0); SEGMENTED NEUTROPHILS % (AUTO) 87.9 % (42-78)
[2017-05-06 05:18] LABS: ARTERIAL BLOOD BASE EXCESS 6.9 mmol/L; ARTERIAL BLOOD O2 SATURATION 97.8 % (94-98)
[2017-05-06 05:35] LABS: ALANINE AMINOTRANSFERASE 39 U/L (9-52); ALBUMIN 3.2 g/dL (3.5-5.0); ALKALINE PHOSPHATASE 48 U/L (38-126); ANION GAP 9 (5-19); ASPARTATE AMINO TRANSFERASE 58 U/L (14-36); BILIRUBIN,DIRECT 0.1 mg/dL (0.0-0.4); BILIRUBIN,TOTAL 0.4 mg/dL (0.2-1.3); BLOOD UREA NITROGEN 28 mg/dL (7-20); CALCIUM 8.7 mg/dL (8.4-10.2); CARBON DIOXIDE 32 mmol/L (22-30); CHLORIDE 91 mmol/L (98-107); CREATININE RESULT 1.87 mg/dL (0.52-1.25); GLUCOSE 174 mg/dL (75-110); MAGNESIUM 1.8 mg/dL (1.6-2.3); PHOSPHORUS 5.1 mg/dL (2.5-4.5); POTASSIUM 3.7 mmol/L (3.6-5.0); SODIUM 132.1 mmol/L (137-145); TOTAL PROTEIN 6.8 g/dL (6.3-8.2)
[2017-05-06 05:47] LABS: FREE T3 1.65 pg/mL (2.77-5.27)
--- NOTE | 2017-05-06 06:50 | RADIOLOGY REPORT (SQ) ---
EXAM DESCRIPTION: CHEST SINGLE VIEW CLINICAL HISTORY: resp failure COMPARISON: 05/05/2017 FINDINGS: Single frontal view of the chest. Cardiomegaly. Atelectatic calcification aortic arch. Left lower lobe consolidation with air bronchograms. No pneumothorax. Left pleural effusion is a possibility. Endotracheal tube with tip 5 cm above the darryn. NG tube with tip below the diaphragm. Leads overlie the chest. No acute osseous abnormalities. Interval increase in patchy right basilar opacity. Upper abdominal soft tissues are unremarkable. IMPRESSION: 1. Interval increase in patchy right basilar opacity. Unchanged left basilar consolidation. Electronically signed by: Rich Rojas 05/06/2017 5:48
--- NOTE | 2017-05-06 09:22 | PDOC PROGRESS REPORT ---
Subjective Progress Note for:: 05/06/17 Subjective:: Intubated and sedated Reason For Visit: ACUTE CONGESTIVE HEART FAILURE, HYPERCAPNIC Physical Exam Vital Signs: Temp Pulse Resp BP Pulse Ox 98.4 F 63 14 145/75 H 99 05/06/17 08:00 05/06/17 08:59 05/06/17 08:36 05/06/17 08:36 05/06/17 08:36 Intake & Output 05/05/17 05/06/17 05/07/17 06:59 06:59 06:59 Intake Total 808 Output Total 1060 1080 100 Balance -1060 -272 -100 Weight 87 kg 86.9 kg General appearance: PRESENT: no acute distress, disheveled. ABSENT: cooperative , hard of hearing, mild distress, severe distress, thin Head exam: PRESENT: atraumatic, normocephalic Eye exam: PRESENT: conjunctiva pale. ABSENT: conjunctival injection, conjunctiva pink, EOMI, nystagmus, periorbital swelling, scleral icterus Mouth exam: PRESENT: dry mucosa, tongue midline Neck exam: ABSENT: carotid bruit, JVD, lymphadenopathy, thyromegaly Respiratory exam: PRESENT: crackles, decreased breath sounds, prolonged expiratory phas, rhonchi, symmetrical, unlabored, wheezes. ABSENT: accessory muscle use, clear to auscultation scarlett, rales, retraction, stridor, tachypnea Cardiovascular exam: PRESENT: RRR, +S1, +S2, systolic murmur. ABSENT: irregular rhythm, rubs Pulses: PRESENT: normal radial pulses GI/Abdominal exam: PRESENT: normal bowel sounds, soft. ABSENT: distended, guarding, mass, organolmegaly, rebound, tenderness Rectal exam: PRESENT: deferred Gentrourinary exam: PRESENT: indwelling catheter Extremities exam: PRESENT: +2 edema. ABSENT: clubbing, joint swelling Musculoskeletal exam: ABSENT: ambulatory, deformity, dislocation Skin exam: PRESENT: dry, warm Results Laboratory Results: 05/06/17 05:08 05/06/17 05:08 05/05/17 05/06/17 05/06/17 13:40 05:08 05:08 WBC 11.0 H RBC 3.20 L Hgb 10.0 L Hct 29.7 L MCV 93 MCH 31.1 MCHC 33.5 RDW 13.6 Plt Count 203 Seg Neutrophils % 87.9 H Lymphocytes % 6.1 L Monocytes % 5.9 Eosinophils % 0.0 Basophils % 0.1 Absolute Neutrophils 9.7 H Absolute Lymphocytes 0.7 Absolute Monocytes 0.7 Absolute Eosinophils 0.0 Absolute Basophils 0.0 Carbonic Acid 1.05 HCO3/H2CO3 Ratio 28:1 ABG pH 7.55 H ABG pCO2 34.9 L ABG pO2 96.1 ABG HCO3 30.0 H ABG O2 Saturation 98.1 H ABG Base Excess 7.6 FiO2 35% Sodium Potassium Chloride Carbon Dioxide Anion Gap BUN Creatinine Est GFR ( Amer) Est GFR (Non-Af Amer) Glucose Calcium Phosphorus Magnesium Total Bilirubin AST ALT Alkaline Phosphatase Total Protein Albumin Free T4 0.31 L Free T3 pg/mL 1.65 L 05/06/17 05/06/17 05:08 05:08 WBC RBC Hgb Hct MCV MCH MCHC RDW Plt Count Seg Neutrophils % Lymphocytes % Monocytes % Eosinophils % Basophils % Absolute Neutrophils Absolute Lymphocytes Absolute Monocytes Absolute Eosinophils Absolute Basophils Carbonic Acid 1.22 HCO3/H2CO3 Ratio 25:1 ABG pH 7.50 H ABG pCO2 40.6 ABG pO2 95.5 ABG HCO3 30.7 H ABG O2 Saturation 97.8 ABG Base Excess 6.9 FiO2 35% Sodium 132.1 L Potassium 3.7 Chloride 91 L Carbon Dioxide 32 H Anion Gap 9 BUN 28 H Creatinine 1.87 H Est GFR ( Amer) 32 L Est GFR (Non-Af Amer) 27 L Glucose 174 H Calcium 8.7 Phosphorus 5.1 H Magnesium 1.8 Total Bilirubin 0.4 AST 58 H ALT 39 Alkaline Phosphatase 48 Total Protein 6.8 Albumin 3.2 L Free T4 Free T3 pg/mL 05/05/17 05/05/17 05/05/17 01:00 01:00 07:26 Creatine Kinase 393 H 387 H CK-MB (CK-2) 6.30 H Troponin I 0.086 NT-Pro-B Natriuret Pep 05/05/17 05/06/17 07:26 05:08 Creatine Kinase CK-MB (CK-2) 5.50 H Troponin I 0.092 NT-Pro-B Natriuret Pep 4320 H 1820 H Impressions: Thyroid Ultrasound 05/04/17 00:00 IMPRESSION: No identifiable thyroid tissue was seen. No masses were seen. The study is limited by positioning the fact the patient was on a ventilator. Chest/Abdomen CTA 05/05/17 00:00 IMPRESSION: 1. NORMAL CTA OF THE CHEST. NO PULMONARY EMBOLI. 2. LARGE PERICARDIAL EFFUSION. 3. SMALL PLEURAL EFFUSIONS. SCATTERED AREAS OF ATELECTASIS AND/OR INFILTRATE. BRONCHIECTASIS IN THE LOWER LOBES. Chest X-Ray 05/06/17 06:00 IMPRESSION: 1. Interval increase in patchy right basilar opacity. Unchanged left basilar consolidation. Assessment & Plan - Diagnosis (1) Acute respiratory failure Qualifiers: Respiratory failure complication: hypoxia and hypercapnia Qualified Code(s) : J96.01 - Acute respiratory failure with hypoxia; J96.02 - Acute respiratory failure with hypercapnia; J96.02 - Acute respiratory failure with hypercapnia; J96.02 - Acute respiratory failure with hypercapnia Is this a current diagnosis for this admission?: Yes Plan: Abg. Acceotable ventilating well (2) CHF (congestive heart failure) Qualifiers: Congestive heart failure type: unspecified congestive heart failure type Congestive heart failure chronicity: acute Qualified Code(s): I50.9 - Heart failure, unspecified Is this a current diagnosis for this admission?: Yes Plan: Stable pleural vs pericardial effusion (3) Myxedema coma Is this a current diagnosis for this admission?: Yes Plan: Continue iv synthroid Labs- All tests 24 hr 05/05/17 05/05/17 05/06/17 07:26 11:59 05:08 Free T4 0.22 L 0.31 L Free T3 pg/mL 1.37 L Random Cortisol 63.60 - Time Total Critical Time (Minutes): 40 - Plan Summary Plan Summary: Primary CARE plans to transfer to [facility]
[2017-05-06] MEDS: FUROSEMIDE INJ/PF 40 MG/4 ML SDV IV SCH (09:47)
[2017-05-06] MEDS: FAMOTIDINE 20 MG TABLET NG SCH (09:47)
[2017-05-06] MEDS: LEVOTHYROXINE SODIUM INJ/PF 0.1 MG SDV IV SCH (09:47)
[2017-05-06] MEDS ORDERED: MEROPENEM 1 GM in NORMAL SALINE 50 ML IV SCH (10:00)
--- NOTE | 2017-05-06 10:03 | XCELERA REPORT ---
[address] [address] Transthoracic Echocardiogram Report Name: ZOFIA RIVERA Age: 66 yrs Gender: Female : 1950 Patient Status: Inpatient Patient Location: ICU^610^A Study Date: 05/05/2017 09:16 AM Height: 66 in Weight: 175 lb BSA: 1.9 m2 Procedure: A two-dimensional transthoracic echocardiogram with color flow and Doppler was performed. Study Quality: Fair. Reason For Study: CHF History: CHF. Ordering Physician: GILES BARRAZA Performed By: Trudi Patel Interpretation Summary The left ventricle is normal in size. There is severe concentric left ventricular hypertrophy. LV EF is 55% Left ventricular systolic function is low normal. Doppler measurements suggest impaired left ventricular relaxation, which is associated with grade I/IV or mild diastolic dysfunction The left ventricular wall motion is normal. The right ventricle is normal in size and function. The right atrium is normal. The left atrial size is normal. There is no evidence of mitral valve prolapse. There is no mitral valve stenosis. There is a moderate amount of mitral regurgitation There is no aortic valve stenosis There is no LVOT obstruction. There is a moderate amount of aortic regurgitation There is no tricuspid stenosis. There is a mild amount of tricuspid regurgitation Right ventricular systolic pressure is normal. RVSP is 27 mm of Hg , with RA mean of 10. There is no pulmonic valvular stenosis. There is a trace amount of pulmonic regurgitation There is a moderate pericardial effusion that is circumferential There are no echocardiographic or Doppler indications for cardiac tamponade MMode/2D Measurements & Calculations RVDd: 2.4 cm LVIDd: 4.3 cm FS: 31.2 % Ao root diam: 2.3 cm IVSd: 2.0 cm LVIDs: 3.0 cm EDV(Teich): 83.6 ml LVPWd: 2.0 cm ESV(Teich): 34.0 ml Ao root area: 4.2 cm2 EF(Teich): 59.3 % LA dimension: 3.1 cm Doppler Measurements & Calculations MV E max ole: MV P1/2t max ole: Ao V2 max: AI max ole: 80.0 cm/sec 79.5 cm/sec 141.2 cm/sec 493.2 cm/sec MV A max ole: MV P1/2t: 78.3 msec Ao max PG: AI max P.3 cm/sec 8.0 mmHg 97.3 mmHg MV E/A: 0.60 MVA(P1/2t): 2.8 cm2 AI dec slope: MV dec slope: 297.4 cm/sec2 296.1 cm/sec2 MV dec time: AI P1/2t: 0.24 sec 487.9 msec LV V1 max PG: PA V2 max: PI end-d ole: TR max ole: 3.2 mmHg 54.8 cm/sec 84.2 cm/sec 208.5 cm/sec LV V1 max: PA max P.2 mmHg TR max P.3 cm/sec 17.4 mmHg Left Ventricle The left ventricle is normal in size. There is severe concentric left ventricular hypertrophy. LV EF is 55%. Left ventricular systolic function is low normal. Doppler measurements suggest impaired left ventricular relaxation, which is associated with grade I/IV or mild diastolic dysfunction. The left ventricular wall motion is normal. There is no thrombus. Right Ventricle The right ventricle is normal in size and function. Atria The right atrium is normal. The left atrial size is normal. Mitral Valve There is no evidence of mitral valve prolapse. There is no vegetation seen on the mitral valve. There is no mitral valve stenosis. There is a moderate amount of mitral regurgitation. Aortic Valve There is no aortic valvular vegetation. There is no aortic valve stenosis. There is no LVOT obstruction. There is a moderate amount of aortic regurgitation. Tricuspid Valve There is no tricuspid stenosis. There is a mild amount of tricuspid regurgitation. Right ventricular systolic pressure is normal. RVSP is 27 mm of Hg , with RA mean of 10. Pulmonic Valve There is no pulmonic valvular stenosis. There is a trace amount of pulmonic regurgitation. Great Vessels The aortic root is normal size. Effusions There are no echocardiographic or Doppler indications for cardiac tamponade. There is a moderate pericardial effusion that is circumferential. : GILES BARRAZA > Suzi Regalado
[2017-05-06 10:21] LABS: THYROTROPIN RECEPTOR AB 0.74 IU/L (0.00-1.75)
[2017-05-06 10:24] VITALS: BP 120/70
--- NOTE | 2017-05-06 10:24 | TRANSFER SUMMARY E ---
Transfer Summary NAME: ZOFIA RIVERA : 1950 AGE: 66Y ADMITTED: 05/04/2017 TRANSFERRED: 05/06/2017 PRIMARY CARE PROVIDER: Not established. CONSULTING METAL WINDOW FRAME MAKER: Dr. Reid CONSULTING GRINDER OPERATOR TOOL: Dr. Regalado TRANSFER DIAGNOSES: 1. Mixed edema. 2. Pericardial effusion. 3. Acute hypercapnic respiratory failure. 4. Anasarca. 5. Hypothyroidism. 6. Hypertensive urgency much improved. CURRENT MEDICATIONS: 1. Ceftriaxone 1 g IV q.24 hours. 2. Phenergan 12.5 mg via OG q.4 hours p.r.n. 3. Nebulizer 2.5 mg neb q.6 hours p.r.n. 4. Heparin 5000 units subcutaneous q.8 hours. 5. Nitropaste 1 g topically q.6 hours. 6. Fentanyl 50 micrograms IV q.4 hours p.r.n. 7. Versed drip titrated per . 8. Propofol drip titrated per . 9. Pepcid 20 mg via NG q.12 hours. 10. Solu-Cortef 50 mg IV q.8 hours. 11. Levothyroxine 0.1 mg IV daily. DIET: She is n.p.o. for transfer. ACTIVITY: Bedrest. DIAGNOSTICS: Lab values are as follows: Hematology obtained on 05/06/2017: WBCs 11.0, hemoglobin 10.0, hematocrit is 29.7, platelet count is 203,000. Coagulation obtained on 05/04/2017: PT is 60.5, INR is 1.25. Pre-intubation blood gas obtained on 05/04/2017: The pH is 7.28, pCO2 is 72, pO2 is 140, bicarb 33.1, total CO2 is 35.4, oxygen saturation 98.5. Venous blood gas obtained just prior to that revealed a pH of 7.31 and a pCO2 of 68 with a bicarb of 33. Blood gas obtained on 12/04/2016: The pH is 7.5, pCO2 is 40.6, pO2 is 95.5, bicarb is 30.7, O2 saturation is 97.9 and this is obtained on 35% FiO2. Chemistry obtained on 05/06/2017: Sodium is 132, potassium 3.7, chloride is 91, carbon dioxide 32, BUN 28, creatinine is 1.87, glucose 174, A1c is 6.9, lactic acid is 1.5, calcium 8.7, phosphorus, magnesium 1.8, bilirubin 0.4, AST 58, ALT is 49, alk phos 48, CK 387, troponin is 0.092, BNP is 1820, total protein 6.8, albumin 3.2. Chemistry obtained on 05/04/2017 on presentation revealed a creatinine of 0.82, a TSH of 68.5, a T4 of 0.07. Urinalysis obtained on 05/04/2017: Color yellow, appearance cloudy, pH 6.0, specific gravity 1.010, protein 100, glucose negative, ketones negative, occult blood small, nitrate negative, bilirubin negative, urobilinogen negative, leukocyte esterase trace, WBC 7, RBC 9, casts 22, bacteria 3+, ascorbic acid of 40. Microbiology obtained on 05/04/2017: Blood cultures reveal no growth. Urine culture obtained on 05/04/2017 reveals a pansensitive E. coli. Tracheal aspirate obtained on 05/04/2017 reveals no growth at this time. Chest x-ray obtained on 05/04/2017 reveals marked cardiomegaly, extensive infiltrate of the left lung and left pleural effusion. Thyroid ultrasound obtained on 05/04/2017 reveals no identifiable thyroid tissue seen. No masses were seen. CTA of the chest obtained on 05/05/2017 reveals a normal CTA of the chest with no pulmonary emboli with a large pericardial effusion, small pleural effusions, scattered areas of atelectasis or infiltrate with bronchiectasis of the lower lobes. Chest x-ray obtained on 05/06/2017 reveals increased patchy right basilar opacity, unchanged left basilar consolidation. Echocardiogram obtained on 05/05/2017: Interpretation is pending. PHYSICAL EXAMINATION: GENERAL: On examination, the patient is a well-developed, 66-year-old -[place] female who is currently intubated and sedated. She does appear comfortable. Will arouse. VITAL SIGNS: Temperature 97.8, pulse 90 with normal sinus rhythm, respirations 12, blood pressure 114/68, oxygen saturation is 100% on 35% FiO2. SKIN: Warm and dry. No rash. She is not diaphoretic. HEENT: Pupils are equal and reactive with periorbital edema. The patient does have JVP to the right clavicle. CARDIOVASCULAR: Heart is regular. Heart sounds are distant. CHEST: Diminished, symmetrical, unlabored. ABDOMEN: Distended. Bowel sounds are present. EXTREMITIES: No clubbing or cyanosis. The patient has evidence of chronic edema. PSYCHIATRIC: Unable to fully assess. HISTORY OF PRESENT ILLNESS: The patient is a 66-year-old -[place] female with a past medical history of hypothyroidism that has not sought medical care in decades. The patient presented to the ER with a chief complaint of persistent shortness of breath. The patient was initially treated with BiPAP, however, her symptoms continued to deteriorate and once seen by the clinical interviewer the patient did require intubation. The patient had an appropriate Accu-Chek. She did not have any transient hypotension and the patient did not have any hypoxia, however, the patient was hypercapnic and her mental status continued to rapidly deteriorate. However, prior to that time the patient was able to provide a history that she had hypothyroidism but has chosen not to treat it citing that she had been traumatized at a younger age with healthcare and did not like needles and subsequently had not treated her thyroid. The patient, at one time, was found to be hypertensive with a blood pressure of 230/130, however, after the application of Nitropaste as well as sedation, her blood pressure corrected nicely. While in the emergency department, the patient was diuresed with 80 mg of IV Lasix for which she output over a liter and a half, and the patient was admitted to the critical care unit. HOSPITAL COURSE: The patient was admitted to the critical care unit. The patient continued diuresis, however, her output fell off. The patient's creatinine bumped overnight to 1.87 with the patient's overall output only equaling the initial liter and a half to the negative. Given the patient's findings of a TSH of 70 and very low T4, the case was discussed with Endocrinology and the patient was supplemented IV levothyroxine. Did defer T3 supplementation at this time. The patient did have an echocardiogram and images were difficult to discern, pleural versus a pericardial effusion and the patient underwent CTA which did reveal a very large pericardial effusion. There is still evidence of a possible consolidation within the left lobe versus a bronchiectasis and therefore the patient has been covered with meropenem instead of just the ceftriaxone for the urinary tract infection. During the patient's course, the patient's blood pressures remained in a decent range with the application of Nitropaste and sedation. The patient has not required any vasopressors to the time of this dictation. However, given the patient's bump in creatinine, an ARB was discontinued. In spite of diuresis which includes Lasix IV 40 mg q.12 hours, the patient's CVP remained elevated around the 18-24 range. TRANSFER PLAN: The patient will be received to the postal supervisor services at CICU at [facility] under the care of Dr. Sumner. And as always, [facility] and the hospitalist team would like to thank [facility] and the postal supervisor team for graciously participating in the care of this patient. Time spent on this transfer including assessment, plan, physical examination, family meeting, and resource alignment is 45 minutes. DICTATING PHYSICIAN: DAVID HESS NP [id number] PHY#: [id number] ID: [id number] JOB#: [id number] ACCT: [id number] cc:DAVID HESS NP > [facility]
--- NOTE | 2017-05-06 11:46 | PDOC CONSULTATION ---
Consultation Consult Date: 05/05/17 Attending physician:: GILES BARRAZA Consult reason:: Respiratory failure/abnormal mental status History of Present Illness Admission Date/PCP: 05/04/17 20:00 History of Present Illness: All information from family and chart.66-year-old female presented to emergency room with increasing shortness of breath and failed BiPAP subsequently was intubated she is currently intensive care unit on mechanical ventilation she has had a childhood history of thyroid disease but no evidence of certain of the details however he did cause a phobia and the only other time she seen physicians at the of her 3 children. She does not take any medications except self prescribed [id number]. No known hemoptysis no known lung trials problems as a child or adolescent positive smoke passive as a child and as an adult. 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 No pets no recent travel snoring was reported. Children Past Medical History Cardiac Medical History: Reports: Hypertension Pulmonary Medical History: Denies: Asthma, Intubation, Respiratory Failure, Tuberculosis EENT Medical History: Denies: Ears, Nose Neurological Medical History: Denies: Migraine, Multiple Sclerosis, Seizures Endocrine Medical History: Reports: Other - Thyroid problem Denies: Diabetes Mellitus Type 1, Gestational Diabetes Renal/ Medical History: Reports: Chronic Kidney Disease, Nephrolithiasis Malignancy Medical History: Reports: None GI Medical History: Reports: None Musculoskeltal Medical History: Denies: Gout Skin Medical History: Denies: Eczema, Psoriasis Psychiatric Medical History: Reports: General Anxiety Disorder, Post Traumatic Stress Disorder Traumatic Medical History: Denies: Traumatic Brain Injury Hematology: Denies: Sickle Cell Disease, Bleeding Tendencies Infectious Medical History: Denies: Hepatitis B, Hepatitis C Past Surgical History Past Surgical History: Reports: None, Section Social History Information Source: Relative, [facility] Have you worked as/with:: [employer] Lives with: Alone Smoking Status: Unknown if Ever Smoked Passive smoke exposure as: Both Frequency of Alcohol Use: None Hx Recreational Drug Use: No Hx Prescription Drug Abuse: No Do you have pets?: No Have you had any respiratory illnesses as a child?: No Have you been exposed to any sick contacts recently?: No Have you had any recent respiratory illnesses?: No Have you travelled outside of [place] in the past 12 months?: No - Advance Directive Resuscitation Status: Full Code Family History Family History: CAD, DM, Hypertension Parental Family History Reviewed: Yes Children Family History Reviewed: Yes Sibling(s) Family History Reviewed.: Yes Medication/Allergy Home Medications: No Home Medications 05/04/17 Allergies/Adverse Reactions: amoxicillin Allergy (Verified 05/04/17 15:09) Review of Systems ROS unobtainable: Due to endotracheal tube, Due to mental status Physical Exam Vital Signs: Temp Pulse Resp BP Pulse Ox 97.4 F 66 12 101/62 100 05/05/17 04:24 05/04/17 21:22 05/05/17 06:00 05/05/17 05:54 05/05/17 06:00 Intake & Output 05/04/17 05/05/17 05/06/17 06:59 06:59 06:59 Output Total 1060 Balance -1060 Weight 87 kg General appearance: PRESENT: no acute distress, disheveled, well-developed, well -nourished. ABSENT: cooperative, mild distress, morbidly obese, obese, severe distress, thin Head exam: PRESENT: atraumatic, normocephalic Eye exam: PRESENT: conjunctiva pale, EOMI. ABSENT: conjunctival injection, conjunctiva pink, nystagmus, periorbital swelling, scleral icterus Mouth exam: PRESENT: dry mucosa, neck supple, tongue midline, other - ET tube in place. ABSENT: laceration, moist Neck exam: ABSENT: carotid bruit, JVD, lymphadenopathy, thyromegaly, tracheal deviation, tracheostomy Respiratory exam: PRESENT: decreased breath sounds, prolonged expiratory phas, rhonchi, symmetrical, unlabored. ABSENT: accessory muscle use, chest wall tenderness, clear to auscultation scarlett, crackles, rales, retraction, stridor, tachypnea Cardiovascular exam: PRESENT: RRR, +S1, +S2. ABSENT: irregular rhythm, rubs Pulses: PRESENT: normal radial pulses GI/Abdominal exam: PRESENT: normal bowel sounds, soft. ABSENT: distended, guarding, mass, organolmegaly, rebound, tenderness Gentrourinary exam: PRESENT: indwelling catheter Extremities exam: ABSENT: clubbing, joint swelling, tenderness Musculoskeletal exam: ABSENT: deformity, dislocation Skin exam: PRESENT: dry, warm Results Laboratory Results: 05/05/17 07:26 05/05/17 07:26 12/05/0905/05/17 05/05/17 20:18 00:10 05:19 WBC RBC Hgb Hct MCV MCH MCHC RDW Plt Count Seg Neutrophils % Lymphocytes % Monocytes % Eosinophils % Basophils % Absolute Neutrophils Absolute Lymphocytes Absolute Monocytes Absolute Eosinophils Absolute Basophils Carbonic Acid 1.82 H 0.85 L 0.98 L HCO3/H2CO3 Ratio 18:1 32:1 31:1 ABG pH 7.37 7.61 H* 7.59 H ABG pCO2 60.3 H 28.4 L 32.5 L ABG pO2 222.4 H 74.7 L 84.1 ABG HCO3 34.2 H 27.7 H 30.7 H ABG O2 Saturation 99.4 H 97.0 97.6 ABG Base Excess 7.3 6.6 8.7 FiO2 80% 40% 40% Sodium Potassium Chloride Carbon Dioxide Anion Gap BUN Creatinine Est GFR ( Amer) Est GFR (Non-Af Amer) Glucose Calcium Magnesium Triglycerides Cholesterol LDL Cholesterol Direct VLDL Cholesterol HDL Cholesterol Free T4 Free T3 pg/mL 05/05/17 05/05/17 05/05/17 07:26 07:26 07:26 WBC 9.2 RBC 3.11 L Hgb 9.8 L Hct 28.9 L MCV 93 MCH 31.6 MCHC 34.0 RDW 13.3 Plt Count 174 Seg Neutrophils % 86.8 H Lymphocytes % 7.0 L Monocytes % 6.0 Eosinophils % 0.0 Basophils % 0.2 Absolute Neutrophils 8.0 Absolute Lymphocytes 0.6 Absolute Monocytes 0.5 Absolute Eosinophils 0.0 Absolute Basophils 0.0 Carbonic Acid HCO3/H2CO3 Ratio ABG pH ABG pCO2 ABG pO2 ABG HCO3 ABG O2 Saturation ABG Base Excess FiO2 Sodium 132.4 L Potassium 4.1 Chloride 93 L Carbon Dioxide 28 Anion Gap 11 BUN 17 Creatinine 1.13 Est GFR ( Amer) 58 L Est GFR (Non-Af Amer) 48 L Glucose 184 H Calcium 8.9 Magnesium 1.8 Triglycerides 94 Cholesterol 237.17 H LDL Cholesterol Direct 163 H VLDL Cholesterol 19.0 HDL Cholesterol 48 Free T4 0.22 L Free T3 pg/mL 1.37 L 05/05/17 05/05/17 05/05/17 01:00 01:00 07:26 Creatine Kinase 393 H 387 H CK-MB (CK-2) 6.30 H Troponin I 0.086 NT-Pro-B Natriuret Pep 05/05/17 07:26 Creatine Kinase CK-MB (CK-2) 5.50 H Troponin I 0.092 NT-Pro-B Natriuret Pep 4320 H Impressions: Chest X-Ray 05/05/17 06:00 IMPRESSION: 1. No significant interval change with persistent left lower lobe pneumonic consolidation. Assessment & Plan - Diagnosis (1) Acute respiratory failure Qualifiers: Respiratory failure complication: hypoxia and hypercapnia Qualified Code(s) : J96.01 - Acute respiratory failure with hypoxia; J96.02 - Acute respiratory failure with hypercapnia; J96.02 - Acute respiratory failure with hypercapnia; J96.02 - Acute respiratory failure with hypercapnia Is this a current diagnosis for this admission?: Yes Plan: Oxygenating and ventilating ;patient unable to protect airway has been hypercapnic (2) CHF (congestive heart failure) Qualifiers: Congestive heart failure type: unspecified congestive heart failure type Congestive heart failure chronicity: acute Qualified Code(s): I50.9 - Heart failure, unspecified Is this a current diagnosis for this admission?: Yes Plan: Stable pleural vs pericardial effusion (3) Hypertensive emergency Is this a current diagnosis for this admission?: Yes Plan: Controlled with nitroglycerin (4) Myxedema coma Is this a current diagnosis for this admission?: Yes Plan: Continue iv synthroid Labs- All tests 24 hr 05/05/17 05/05/17 05/06/17 07:26 11:59 05:08 Free T4 0.22 L 0.31 L Free T3 pg/mL 1.37 L Random Cortisol 63.60 - Time Total Critical Time (Minutes): 55
--- NOTE | 2017-05-06 13:14 | CONSULTATION REPORT E ---
Consultation Report NAME: ZOFIA RIVERA : 1950 AGE: 66Y DATE: 05/05/2017 610 A TO: MARKUS DORANTES M.D. FROM: GILES BARRAZA M.D. Requesting Physician REASON FOR CONSULTATION: Congestive heart failure and possibly pericardial effusion. Note, unable to get history from the patient, and no family available at this time. Hence, information gathered from the patient's present chart. HISTORY OF PRESENT ILLNESS: As per the History and Physical, the patient was brought to the emergency room with a history of shortness of breath which is severe, with O2 sat of 70%, and her blood pressure was 230/130, and she was placed on BiPAP and given Lasix 80 mg IV, and also placed on topical nitroglycerin paste. As per the patient's history, the patient has been having this shortness of breath with dyspnea on exertion, PND, and orthopnea for many months but has not gone to see a doctor. She has a history of hypertension and diabetes mellitus. She also has thyroid problems but has not seen a doctor, and her TSH is severely elevated, suggesting severe hypothyroidism/myxedema. The patient in the emergency room was seen by the Hospitalist, and was unresponsive on BiPAP, and was emergently intubated. At present the patient is on the ventilator. PAST MEDICAL HISTORY: As per the chart: 1. Hypertension. 2. Thyroid problems. 3. Diabetes mellitus. PAST SURGICAL HISTORY: None. SOCIAL HISTORY: The patient lives alone. The patient does not smoke. . REVIEW OF SYSTEMS: Not available except for shortness of breath for a long time. There is no chest pain or GA or history of congestive heart failure, although she has been having PND, orthopnea, and leg edema which is nonpitting edema secondary to myxedema. MEDICATIONS: 1. Albuterol sulfate 2.5 nebulizer treatment q.6 hours p.r.n. 2. Cosyntropin 0.5 mg IV push x1. 3. Hypoglycemic precaution with glucose 40% gel, 15 grams and 30 grams p.o. p.r.n. hypoglycemia. 4. Dextrose 50%, 12.5 grams intravenously and 25 grams intravenously p.r.n. hypoglycemia. 5. Famotidine 20 mg via NG tube q.12 h. 6. 0.5 mL on the day of discharge. 7. Lasix 40 mg IV q.12 h. 8. Heparin sodium 5000 units subcutaneously q.12 h. 9. Hydrocortisone 100 mg IV x1. 10. Hydrocortisone 50 mg IV q.8 h. 11. Accu-Checks with regular insulin coverage. 12. Ceftriaxone 1 gram IV daily. 13. Versed and a propofol drip. 14. Levothyroxine 0.1 mg intravenously daily. 15. Cytomel 25 mcg via NG tube x1. 16. Losartan 25 mg via NG tube q.12 h. 17. Transderm Nitropaste 2 inches 1 gram topically q.6 h. 18. Phenergan 12.5 mg via NG tube q.4 h. p.r.n. 19. Racemic epinephrine 0.5 mL nebulizer treatment x1. PHYSICAL EXAMINATION: GENERAL: The patient is intubated and sedated. Her face appears to be . VITAL SIGNS: She is afebrile with a temperature of 98 degrees Fahrenheit, pulse of 50 per minute sinus rhythm, blood pressure is 120/68, respirations are 12 per minute on mechanical ventilator, O2 sats are 100% on 35% FiO2. HEAD: Atraumatic, normocephalic. EYES: Pupils are reactive to light. There is no conjunctival pallor. ENT: Not examined. NECK: No JVD. Carotids are equal. There is no bruit. There is no lymphadenopathy. There is no goiter. Trachea is central. LUNGS: Show scattered dry crackles of pneumonia bilaterally. She also has a small area of dullness and diminished air entry in the bases. HEART: S1, S2 is heard. There is no S3 gallop. There is no S4 gallop. There is a systolic murmur in the left sternal border and the apex. There is no rub. ABDOMEN: Soft, nontender. There is no hepatosplenomegaly. Bowel sounds are well heard. EXTREMITIES: Femorals are diminished. There is no femoral bruit. Leg pulses are difficult to palpate. There is nonpitting myxedema bilaterally in the lower extremities. CENTRAL NERVOUS SYSTEM: Not examined since the patient is intubated and sedated. PSYCHIATRIC: Not examined since the patient is intubated and sedated. The patient's last 24-hour output was 1060 mL. IMAGING STUDIES: The patient's chest x-ray shows marked cardiomegaly, extensive infiltrate in the left lung with left pleural effusions, possibly slightly worse. The patient's thyroid ultrasound shows no identified thyroid tissue seen. No masses were seen. Study is limited by positioning of the patient. The patient's EKG shows sinus rhythm, left ventricular hypertrophy, with possible strain pattern. Cannot exclude lateral wall ischemia. There is prolonged QT interval. The patient's abdominal CTA shows normal CT of the chest with no pulmonary emboli, large pericardial effusion, small pleural effusion. Scattered areas of atelectasis are infiltrate bronchiectasis of the lower lobes. LABORATORY DATA: White count is 9,200, hemoglobin is 9.8, hematocrit is 28.9, and platelet count is 174,000. ABG showed a pH of 7.55, pCO2 is low at 34.9, pO2 is 96.1. O2 saturations are 98.1% on FiO2 of 35%. Sodium is 132.4, potassium 4.1, chloride 93, CO2 is 28, BUN 17, creatinine 1.13, GFR is reduced at 58 which is stage 3A. It is not known what the baseline creatinine of the patient is. Glucose is 184, calcium is 8.9, magnesium is 1.8. Anti-ProBNP is 4,320. Troponin I is 0.092. CPK-MB is 5.50. Earlier the troponin I was 0.086, and CPK-MB was 6.30. Total protein is 9, albumin is 4.3. TSH is 68.50, Free T4 is 0.07. Random Cortisol is 86.80. ProTime is 16.5, INR is 1.25. Thyroid peroxidase antibody and TSH receptor antibody are pending. IMPRESSION: 1. Acute hypercapnic respiratory failure. Patient is presently intubated. Her pCO2 is now back to baseline. In fact, it is over-compensated with a low pCO2. 2. 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 The patient has been discussed by the Hospitalist with [facility], and they suggested replacement intravenously, and hence, Synthroid is being given intravenously. 3. Heart failure. Note, I am not sure if there is left heart failure. 4. Bilateral pneumonia with small pleural effusions. 5. Moderate to large pericardial effusion with no evidence of tamponade. 6. Diabetes mellitus. 7. History of hypertension. Blood pressure well controlled. RECOMMENDATION: 1. Watch for tamponade. 2. Continue current medications. 3. We will discuss with [facility] regarding the need for pericardiocentesis on this patient for a diagnostic yield. TIME SPENT: Note, the patient was seen at 12:00 noon, with 45 minutes spent on this patient with more than 50% of the time spent on direct patient care, and also review of the patient's records. Her medications have been reviewed. Reviewed also the echocardiogram which showed severe LVH, LV ejection fraction being normal at 50%. There is a moderate to large pericardial effusion and small pleural effusions. No significant pulmonary hypertension. This has been discussed with the Hospitalist. Medical decision making is high complexity in this case. We will discuss with [facility] about transferring the patient for possible pericardiocentesis. Discussed with the Hospitalist. I will discuss with the family since they are not here at present. We will follow with you. DICTATING PHYSICIAN: MARKUS DORANTES M.D. [id number] Y#: [id number] ID: [id number] JOB#: [id number] ACCT: [id number] cc:MARKUS DORANTES M.D. >
== END 2017-05-06 10:20 | disposition short-term general hospital (02) | DRG 314 ==
LOC: ER 14:24 → EH 20:00 → ICU 21:01
PROVIDERS: ADMIT Family Medicine; ATTEND Family Medicine
PROC: 5A1945Z Respiratory Ventilation, 24-96 Consecutive Hours (ICD-10-PCS; principal; 2017-05-04)
PROC: 0BH17EZ Insertion of Endotracheal Airway into Trachea, Via Natural or Artificial Opening (ICD-10-PCS; 2017-05-04)
PROC: 02HV33Z Insertion of Infusion Device into Superior Vena Cava, Percutaneous Approach (ICD-10-PCS; 2017-05-05)
DX: I31.3 Pericardial effusion (noninflammatory) (principal); J96.02 Acute respiratory failure with hypercapnia; E03.5 Myxedema coma; J18.9 Pneumonia, unspecified organism; J96.01 Acute respiratory failure with hypoxia; N39.0 Urinary tract infection, site not specified; I16.1 Hypertensive emergency; M62.82 Rhabdomyolysis; E87.1 Hypo-osmolality and hyponatremia; I11.0 Hypertensive heart disease with heart failure; E11.65 Type 2 diabetes mellitus with hyperglycemia; E03.9 Hypothyroidism, unspecified; E88.09 Other disorders of plasma-protein metabolism, not elsewhere classified; E66.9 Obesity, unspecified; I50.9 Heart failure, unspecified; I16.0 Hypertensive urgency; R60.1 Generalized edema; F41.1 Generalized anxiety disorder; B96.20 Unspecified Escherichia coli [E. coli] as the cause of diseases classified elsewhere; Z82.49 Family history of ischemic heart disease and other diseases of the circulatory system; Z83.3 Family history of diabetes mellitus; Z88.0 Allergy status to penicillin; Z68.32 Body mass index [BMI] 32.0-32.9, adult
CPT/HCPCS: 36415; 36600; 51702; 71010; 71275; 76536; 80048; 80053; 80061; 80076; 81001; 82024; 82533; 82550; 82553; 82803; 82962; 83036; 83519; 83605; 83735; 83880; 84100; 84166; 84439; 84443; 84481; 84484; 85025; 85610; 86320; 86376; 87040; 87070; 87086; 87088; 87186; 87205; 93005; 93010; 93306; 94002; 94003; 94640; 94660; 96365; 96375; 99291; C1751; J0330; J0696; J1100; J1644; J1720; J1815; J1940; J1956; J2185; J2250; J2704; J3010; J3490; J7030; J7620